=== PATIENT | male | born 1965 | race Native Hawaiian/Other Pacific Islander ===

== ENCOUNTER 2020-02-27 13:47 | Emergency (ER) | payer OTHER ==
[~2020-02-27] VITALS: Ht 190.5 cm; Wt 113.4 kg
[~2020-02-27 13:47] MED LIST: JANUMET PO
[2020-02-27 13:50] VITALS: TEMP 98.3
[2020-02-27 16:40] VITALS: BP 121/80
== END 2020-02-27 16:41 | disposition home or self-care (01) ==
LOC: ED 13:47
PROC: 0HQGXZZ Repair Left Hand Skin, External Approach (ICD-10-PCS; principal; 2020-02-27)
DX: S61.412A Laceration without foreign body of left hand, initial encounter (principal); W26.8XXA Contact with other sharp object(s), not elsewhere classified, initial encounter; Y92.89 Other specified places as the place of occurrence of the external cause
CPT/HCPCS: 90471; 90715; 99283

== ENCOUNTER 2021-03-06 16:42 | Emergency (ER) | payer OTHER ==
[~2021-03-06] VITALS: Ht 190.5 cm; Wt 113.4 kg
[2021-03-06 16:52] VITALS: TEMP 97.7
[2021-03-06 17:26] LABS: PLATELET COUNT 216 K/uL (142-355)
[2021-03-06 17:33] LABS: POTASSIUM 4.3 mmol/L (3.6-5.2); SODIUM 139 mmol/L (136-145)
[2021-03-06 17:38] LABS: PARTIAL THROMBOPLASTIN TIME 27.4 SECONDS (24.5-33.6)
[2021-03-06 19:00] VITALS: BP 137/82
== END 2021-03-06 19:43 | disposition home or self-care (01) ==
LOC: ED 16:42
PROVIDERS: Hospitalist
DX: I10 Essential (primary) hypertension (principal); G44.209 Tension-type headache, unspecified, not intractable; Z79.84 Long term (current) use of oral hypoglycemic drugs; Z51.81 Encounter for therapeutic drug level monitoring
CPT/HCPCS: 36415; 80053; 82550; 82553; 83880; 84484; 85027; 85610; 85730; 93005; 96374; 96375; 99284; J0360; J1885; J2270; J2405

== ENCOUNTER 2021-08-19 10:58 | Outpatient (CLI) | payer OTHER ==
[2021-08-19 11:54] LABS: PLATELET COUNT 171 K/uL (142-355)
[2021-08-19 12:49] LABS: POTASSIUM 4.8 mmol/L (3.6-5.2)
== END 2021-08-19 19:00 | disposition home or self-care (01) ==
LOC: LABW 10:58 → RAD 10:58 → LAB 10:58 → LABW 19:00
PROVIDERS: ATTEND Internal Medicine
DX: U07.1 COVID-19 (principal)
CPT/HCPCS: 36415; 80053; 85027; 85379; 86140

== ENCOUNTER 2022-05-18 15:59 | Emergency (ER) | payer OTHER ==
[~2022-05-18] VITALS: Ht 190.5 cm; Wt 122.5 kg
[2022-05-18 16:15] VITALS: TEMP 97.9
[2022-05-18 17:21] LABS: PLATELET COUNT 229 K/uL (142-355)
[2022-05-18 17:29] LABS: POTASSIUM 4.1 mmol/L (3.6-5.2)
[2022-05-18 19:50] VITALS: BP 106/78
== END 2022-05-18 20:00 | disposition home or self-care (01) ==
LOC: ED 15:59
PROVIDERS: Emergency Medicine Emergency Medical Services
DX: I95.1 Orthostatic hypotension (principal)
CPT/HCPCS: 80048; 83735; 84484; 85027; 93005; 96360; 99284

== ENCOUNTER 2022-08-05 12:56 | Outpatient (CLI) | payer OTHER | END 2022-08-05 19:35 | disposition home or self-care (01) | LOC: RAD 12:56 | PROVIDERS: ATTEND Internal Medicine | DX: R06.02 Shortness of breath (principal); M54.2 Cervicalgia ==

== ENCOUNTER 2022-08-18 12:43 | Outpatient (CLI) | payer OTHER | END 2022-08-18 19:40 | disposition home or self-care (01) | LOC: MRI 12:43 | PROVIDERS: ATTEND Internal Medicine | DX: M54.2 Cervicalgia (principal); N18.1 Chronic kidney disease, stage 1; R42 Dizziness and giddiness; H54.8 Legal blindness, as defined in USA; G62.9 Polyneuropathy, unspecified ==

== ENCOUNTER 2022-10-19 10:23 | Outpatient (CLI) | payer OTHER | END 2022-10-19 18:57 | disposition home or self-care (01) | LOC: MAMMO 10:23 | PROVIDERS: ATTEND Internal Medicine | DX: N64.4 Mastodynia (principal) ==

== ENCOUNTER 2022-12-17 12:09 | Emergency (ER) | payer OTHER ==
[~2022-12-17] VITALS: Ht 190.5 cm; Wt 117.5 kg
[2022-12-17 12:09] VITALS: BP 126/93; TEMP 98.1
[2022-12-17 12:35] LABS: PLATELET COUNT 220 K/uL (142-355)
[2022-12-17 12:44] LABS: POTASSIUM 4.3 mmol/L (3.6-5.2)
== END 2022-12-17 13:50 | disposition home or self-care (01) ==
LOC: ED 12:09
PROVIDERS: Emergency Medicine
DX: I95.1 Orthostatic hypotension (principal); I10 Essential (primary) hypertension
CPT/HCPCS: 80053; 83880; 84484; 85027; 93005; 99283

== ENCOUNTER 2022-12-29 08:49 | Outpatient (CLI) | payer OTHER | END 2022-12-29 18:54 | disposition home or self-care (01) | LOC: US 08:49 | PROVIDERS: ATTEND Internal Medicine | DX: E11.69 Type 2 diabetes mellitus with other specified complication (principal); N28.89 Other specified disorders of kidney and ureter ==